=== PATIENT | male | born 1955 | race Caucasian/White ===

== ENCOUNTER 2016-09-15 04:39 | Day surgery (SDC) | payer BC ==
[2016-09-15] VITALS (23 sets, daily range): BP systolic 120–142; BP diastolic 66–76; PULSE 57–75; RESP 13–25; TEMP 95.9–98.2; O2SAT 95–99; Ht 182.9 cm; Wt 112.0 kg
[~2016-09-15] VITALS: Ht 182.9 cm; Wt 112.0 kg
--- NOTE | 2016-09-15 04:59 | NUR ---
PROVIDER DR RUFF IN ROOM TO SEE PT
[2016-09-15] MEDS ORDERED: NO KNOWN MEDS (05:06)
--- NOTE | 2016-09-15 05:25 | NUR ---
PORTABLE CXR COMPLETED
[2016-09-15 05:26] LABS: BASOPHILS # (AUTO) 0.1 T/MM3 (0-0.2); BASOPHILS % (AUTO) 0.6 % (0-2); EOSINOPHILS # (AUTO) 0.1 T/MM3 (0-0.5); EOSINOPHILS % (AUTO) 1.3 % (0-4); HCT - HEMATOCRIT 46.9 % (41-53); HGB - HEMOGLOBIN 15.4 GM/DL (13.5-17.5); IMMATURE GRANULOCYTE # (AUTO) 0.01 T/MM3 (0.00-0.03); IMMATURE GRANULOCYTE % (AUTO) 0.1 % (0.0-0.5); LYMPHOCYTES # (AUTO) 1.9 T/MM3 (1-4.8); LYMPHOCYTES % (AUTO) 18.6 % (23-45); MEAN CORPUSCULAR HGB CONC(MCHC 32.8 GM/DL (31-37); MEAN CORPUSCULAR VOLUME 94.6 UM3 (80-100); MEAN PLATELET VOLUME 9.7 UM3 (9.4-12.4); MONOCYTES # (AUTO) 0.5 T/MM3 (0-0.8); MONOCYTES % (AUTO) 5.4 % (0-9.0); NEUTROPHILS #(AUTO)-ABSOLUTE 7.5 T/MM3 (1.8-7.7); RED BLOOD COUNT 4.96 M/MM3 (4.50-5.90); WBC - WHITE BLOOD COUNT 10.1 T/MM3 (4.5-11.0)
[2016-09-15 05:31] LABS: ALBUMIN 3.9 G/DL (3.5-5.0); ALBUMIN/GLOBULIN RATIO 1.4 RATIO (1.1-2.2); ALKALINE PHOSPHATASE 100 U/L (38-126); ALT (SGPT) 26 U/L (21-72); ANION GAP 12 MEQ/L (5-15); AST (SGOT) 21 U/L (17-59); BUN/CREATININE RATIO 18 RATIO (6-26); CALCIUM 9.9 MG/DL (8.4-10.2); CHLORIDE 107 MEQ/L (98-107); CO2 - CARBON DIOXIDE 24 MEQ/L (22-30); CREATININE 0.9 MG/DL (0.8-1.5); GLOMERULAR FILTRATION RATE 86; GLUCOSE 120 MG/DL (75-110); LIPASE 77 U/L (23-300); POTASSIUM 4.5 MEQ/L (3.6-5); SODIUM 143 MEQ/L (134-144); TOTAL PROTEIN 6.7 G/DL (6.3-8.2)
--- NOTE | 2016-09-15 05:47 | ERPDOC ---
Departure Disposition Decision Date: Sep 15, 2016 Disposition Decision Time: 05:47 Disposition: 02 TO [facility] Impression Impression Impression: Primary Impression: Chest pain Chest pain type: unspecified Qualified Codes: R07.9 - Chest pain, unspecified Severity: Moderate Condition: Improved Seen By: Physician only Problems/Meds/Labs Reviewed?: Yes Medications reviewed and manag: Yes Follow up care ordered?: Yes Mental Status: Alert, Oriented HPI - General Medical General Chief Complaint: Chest Pain Stated Complaint: CHEST PAIN Time Seen by Provider: 04:53 Source: patient, EMS Exam Limitations: no limitations HPI - General Medical Initial Comments 61-year-old male presents to the emergency department with a chief complaint of chest discomfort. Patient was at work at the [employer] when he noted onset of lower midsternal chest discomfort without radiation. Pain was moderate in nature. There was no radiation. Patient was given full dose aspirin therapy and a sublingual nitroglycerin tablet by EMS which totally alleviated his symptoms. Patient denies any other complaints or associated symptoms. Symptoms have resolved upon arrival to the emergency department. Patient has no personal history of coronary artery disease. Patient is a smoker and his father did develop coronary artery disease in his 60s. Occurred At: work Onset: other (Resolved. ) Allergies: Coded Allergies: Penicillins (Verified Allergy, Severe, ANAPHYLACTIC SHOCK, 09/15/16) Past History Past Medical History Pt denies signifigant PMH Integumentary: other Surgical History Denies Surgeries Family History Family PMH: FOUND: CAD Social History Smoking Status: Never smoker Substance Use Type: does not use Alcohol Intake: none Review of Systems Constitutional Constitutional: DENIES: chills, fever Eyes General: DENIES: erythema, exudate Lids/Accessories: DENIES: erythema, swelling Vision: DENIES: acuity, blurring ENMT Ears: DENIES: drainage, erythema Hearing: DENIES: hearing loss Balance: DENIES: ataxia, falling to one side Sinuses: DENIES: congestion, pain Nose: DENIES: nosebleeds, pain Mouth/Throat: DENIES: painful swallowing, sore throat Teeth: DENIES: pain Jaw: DENIES: pain Cardiovascular Cardiac: chest pain (Resolved. ), DENIES: dyspnea on exertion Rhythm/Rate: DENIES: irregular beat, palpitations Vascular: DENIES: pedal edema, unilateral swelling Pulmonary Respiratory: DENIES: cough, dyspnea, pleuritic chest pain, sputum GI Upper Abdomen: DENIES: nausea, pain, vomiting Lower Abdomen: DENIES: diarrhea, pain Musculoskeletal General: DENIES: joint pain, tenderness Integumentary Skin: DENIES: itching, rash Neurological General: DENIES: headache, numbness, weakness Psychiatric Psychiatric: DENIES: emotional instability, suicidal ideation/attempt Endocrine Endocrine: DENIES: polydipsia, polyphagia Hematologic/Lymphatic Hematologic/Lymphatic: DENIES: frequent nosebleeds, lymphadenopathy Allergic/Immunological Allergic/Immunoligical: DENIES: allergic reactions, hives Physical Exam General General Nourishment: well nourished, well developed, appears stated age, no acute distress, adult General Body Habitus: well groomed Vitals and Pain First Documented Vital Signs Date Time Temp Pulse Resp B/P Pulse Ox O2 Delivery O2 Flow Rate FiO2 09/15/16 04:50 97.1 59 18 143/82 97 Room Air Weight: Kilograms: 86.300 Height (feet): 6 Height (inches): 0 Triage Pain Scale: RN VS reviewed by Provider: Yes Normal Exams: Head: Normocephalic w/o trauma Eyes: Pupils are PERRLA w/ EOMI, No scleral icterus, irritation, or foreign bodies noted ENMT: No facial trauma, nasal exudates, pharyngeal erythema, or exudates are noted Dental: No fractured, loose, or missing teeth noted Neck: Full range of motion, without adenopathy, JVD, bruits or thyromegaly Chest/Resp: Clear all ma, with good airflow, and symmetry bilaterally CV: Regular rate and rhythm, without murmur or gallop, Pulses 2+ all extremities, capillary refill, <2 seconds all ext., no pedal edema noted Abdomen: Bowel sounds positive, soft, non-tender, non-distended, no hepatosplenomegaly, masses or bruits noted Lymphatic: No lymphadenopathy, or lymphedema noted Musculoskeletal: No tenderness, or deformity noted, good range of motion, all extremities Integumentary: No rashes, hives, or bruising noted, hair and nails, without abnormality Neurologic: Patient is alert, and oriented, cranial nerves, motor/sensory/ cerebellar, exams w/o gross deficits, to observation Psychiatric: Patient exhibits, appropriate attention, emotion and affect Differential Diagnoses Considering: Acute [place], Medication Effect, Metabolic, Other (ACS) Progress Results/Orders Orders Procedure Category Date Status Time Cbc W/Auto LAB 09/15/16 Complete Diff-Reflex Manual Cmp - Comprehensive LAB 09/15/16 Complete Metabolic Troponin I W LAB 09/15/16 Complete Hemolysis Index EKG EKG 09/15/16 Logged Chest 1 View RAD 09/15/16 Taken 04:53 Lipase LAB 09/15/[address] In Facility: ED ADM 09/15/16 Transmitted 05:56 Lab Results Laboratory Tests Test 09/15/16 05:09 White Blood Count 10.1T/MM3 Red Blood Count 4.96M/MM3 Hemoglobin 15.4GM/DL Hematocrit 46.9% Mean Corpuscular Volume 94.6UM3 Mean Corpuscular Hemoglobin 31.0UUG Mean Corpuscular Hemoglobin Concent 32.8GM/DL RDW Standard Deviation 45.3FL Platelet Count 210T/MM3 Mean Platelet Volume 9.7UM3 Immature Granulocyte % (Auto) 0.1% Neutrophils (%) (Auto) 74.0% Lymphocytes (%) (Auto) 18.6% Monocytes (%) (Auto) 5.4% Eosinophils (%) (Auto) 1.3% Basophils (%) (Auto) 0.6% Absolute Immature Granulocyte (auto 0.01T/MM3 Absolute Neutrophils (auto) 7.5T/MM3 Absolute Lymphocytes (auto) 1.9T/MM3 Absolute Monocytes (auto) 0.5T/MM3 Absolute Eosinophils (auto) 0.1T/MM3 Absolute Basophils (auto) 0.1T/MM3 Turbidity < 20 Sodium Level 143MEQ/L Potassium Level 4.5MEQ/L Chloride Level 107MEQ/L Carbon Dioxide Level 24MEQ/L Anion Gap 12MEQ/L Blood Urea Nitrogen 16.0MG/DL Creatinine 0.9MG/DL Glomerular Filtration Rate Calc 86 BUN/Creatinine Ratio 18RATIO Glucose Level 120MG/DL Calculated Osmolality 277MOSM/KG Calcium Level 9.9MG/DL Total Bilirubin 0.50MG/DL Icterus Index < 2 Aspartate Amino Transf (AST/SGOT) 21U/L Alanine Aminotransferase (ALT/SGPT) 26U/L Alkaline Phosphatase 100U/L Troponin I 0.027ng/ml Total Protein 6.7G/DL Albumin 3.9G/DL Globulin 2.8G/DL Albumin/Globulin Ratio 1.4RATIO Lipase 77U/L Chemistry Specimen Hemolysis < 15 Progress Progress Labs / imaging were discussed in detail with the patient and questions are answered. Patient has had full dose aspirin therapy today prior to arrival to the emergency Department. Patient remained pain-free in the emergency Department. Patient is discussed with Fany who is the ACCREDITATION MANAGER for Dr. Mullins and the patient is accepted to their service. Patient is in agreement with the current plan of management. Patient is admitted to the hospital in improved condition. There are no further orders from accepting physician who is in agreement with the current plan of management. EKG EKG : Rate: 60-100 Rhythm: sinus [place]: normal QRS: normal ST/T: other (NO STEMI) Interpreted by: signing physician Xray Xray : Xray: CXR Portable Interpretation: Normal, Interpreted by JORGE Davis DO Sep 15, 2016 05:47
--- NOTE | 2016-09-15 06:25 | NUR ---
REPORT CALLED REPORT TO BRANDON MENENDEZ
--- NOTE | 2016-09-15 06:35 | NUR ---
ADMIT PT TO ROOM 130 PER ER CART. WAS ABLE TO STAND AND PIVOT TO S.U. BED. PT DENIES CP. DOES C/O INDIGESTION.
--- NOTE | 2016-09-15 07:59 | DI ---
Indication: ITS.REASON: Sharp mid to lower chest pain PROCEDURE: CHEST 1 VIEW: Encounter: Initial Comparison: None FINDINGS: The lungs are clear. There is no abnormal airspace opacity, pleural effusion or pneumothorax identified. The heart size, pulmonary vasculature and mediastinum are within normal limits. No significant skeletal abnormality is seen. IMPRESSION: No acute cardiopulmonary abnormality. .
--- NOTE | 2016-09-15 08:27 | NUR ---
SURGICAL LEAD CONTACT DR. BUTLER IN ROOM FOR PT EVAL/ASSMT
--- NOTE | 2016-09-15 09:19 | HPPDOC ---
HPI - Adult Date DATE: 09/15/16 TIME: 08:56 General Date of Admission Date of Admission: Sep 15, 2016 at 05:48 Chief Complaint: Chest pain / epigastric pain History of Present Illness This is a 61 year old patient with no known cardiac disease, or HTN or DM. He has not seen a PCP since he has not had any medical issues. He does smoke. His Father had an ICD in his 60's but does not think he had stents or CABG. He works third shift at [employer] the [employer]. At [address] to [employer] and started to have pain in his lower chest, epigastric area. It was a 8/10. He tried Tums and walking it off as he has done before. and it would not go away. he denies SOB, diaphoresis, N/V, no diarrhea or constipation, No fever/ chills or recent sickness. He has been feeling fine. At work he is physically active daily which has not caused any pain in the past. He went to [place] [facility] he took 2 ASA prior to arrival. In ER: ECG: SB, HR 58, minimal ST wave depression in leads II, III, and AVF. Trop 0.27 which is negative. BP 131/85, CBC and BMP essentially normal. LFT's normal and Lipase 77 - normal. CXR: heart size normal, lungs clear. Tele showing occasional PVC's per Dr. Barnes. In ER he received Ntg sl x1 which decreased his pain gradually from 8/10 to 4/ 10 then 1/10. Dr. Mullins was contacted and admitted pt as OBS. Past Medical History Past Medical History Metabolic: DENIES: diabetes, hypercholesterolemia, hypertension Cardiac: DENIES: CAD Integumentary: other Surgical History Surgical History Comments no surgeries. Current Medications Home Meds Reported Medications [No Known Meds] No Conflict Check 09/15/16 Allergies: Coded Allergies: Penicillins (Verified Allergy, Severe, ANAPHYLACTIC SHOCK, 09/15/16) Family History FOUND: other (father in his 60's had ICD implanted. ) Vaccines DOESN'T DO THIS DOESN'T DO THIS Social History Smoking Status: Current some day smoker # of Packs/Tins per Day: 1/3 # of Years: 40 Substance Use Type: does not use Alcohol Intake: none Marital Status: Housing: house Household Members: other (lives in basement where exwife and her live. ) Number of Children: 1 Current Occupational Status: employed Current Occupation: [employer] at [employer]. Advance Directives: No DPOA for Healthcare Only Physical Exam General Vital Signs Vital Signs Date Time Temp Pulse Resp B/P Pulse Ox O2 Delivery O2 Flow Rate FiO2 09/15/16 06:40 95.9 58 16 142/75 99 Room Air Height (Feet): 6 Height (Inches): 0.00 Neurologic RN Documented GCS Eye Opening: Verbal: Motor: Total: Laboratory Laboratory Tests Test 09/15/16 05:09 White Blood Count 10.1T/MM3 Red Blood Count 4.96M/MM3 Hemoglobin 15.4GM/DL Hematocrit 46.9% Mean Corpuscular Volume 94.6UM3 Mean Corpuscular Hemoglobin 31.0UUG Mean Corpuscular Hemoglobin Concent 32.8GM/DL RDW Standard Deviation 45.3FL Platelet Count 210T/MM3 Mean Platelet Volume 9.7UM3 Immature Granulocyte % (Auto) 0.1% Neutrophils (%) (Auto) 74.0% Lymphocytes (%) (Auto) 18.6% Monocytes (%) (Auto) 5.4% Eosinophils (%) (Auto) 1.3% Basophils (%) (Auto) 0.6% Absolute Immature Granulocyte (auto 0.01T/MM3 Absolute Neutrophils (auto) 7.5T/MM3 Absolute Lymphocytes (auto) 1.9T/MM3 Absolute Monocytes (auto) 0.5T/MM3 Absolute Eosinophils (auto) 0.1T/MM3 Absolute Basophils (auto) 0.1T/MM3 Turbidity < 20 Sodium Level 143MEQ/L Potassium Level 4.5MEQ/L Chloride Level 107MEQ/L Carbon Dioxide Level 24MEQ/L Anion Gap 12MEQ/L Blood Urea Nitrogen 16.0MG/DL Creatinine 0.9MG/DL Glomerular Filtration Rate Calc 86 BUN/Creatinine Ratio 18RATIO Glucose Level 120MG/DL Calculated Osmolality 277MOSM/KG Calcium Level 9.9MG/DL Total Bilirubin 0.50MG/DL Icterus Index < 2 Aspartate Amino Transf (AST/SGOT) 21U/L Alanine Aminotransferase (ALT/SGPT) 26U/L Alkaline Phosphatase 100U/L Troponin I 0.027ng/ml Total Protein 6.7G/DL Albumin 3.9G/DL Globulin 2.8G/DL Albumin/Globulin Ratio 1.4RATIO Lipase 77U/L Chemistry Specimen Hemolysis < 15 Assessment & Plan Problems: (1) Chest pain Status: Acute Qualifiers: Chest pain type: unspecified Qualified Codes: R07.9 - Chest pain, unspecified Assessment & Plan: 09/15/2016 at 0450 ECG: SB, HR 558, ST depression in inferior leads. and repeat 09/15/2016 at 0842 ECG: SB, HR 57, ST depression in inferior leads but less pronounced. First trop neg. Order serial trop. Chest pain resolved with Ntg sl x 1. Start ASA 81mg daily. check lipid profile. Plan heart cath with poss PCI this afternoon. Explained to HC and possibility to pt. (2) Abnormal ECG Status: Acute Assessment & Plan: as above. (3) Smoking Status: Chronic Assessment & Plan: advised cessation (4) Family history of premature CAD Assessment & Plan: Advised risk management with eating right and cont to be active. Code Status Full Code Hospital Course Summary Disclaimer The hospital course summary below is not to be considered part of the above Progress Note. AURA MATHIAS APRN Sep 15, 2016 09:07
[2016-09-15] MEDS ORDERED: ONDANSETRON 4mg/2ml INJECTION IV PRN ×2 (09:30→15:45)
[2016-09-15] MEDS ORDERED: NORMAL SALINE 1,000 ML IV ONE (09:30)
[2016-09-15] MEDS ORDERED: NITROGLYCERIN 0.4 MG SUBLINGUAL TABLET SL PRN ×2 (09:30→15:45)
[2016-09-15] MEDS ORDERED: POLYETHYL.GLYCOL 3350 PACKET 17gm PO PRN (09:45)
[2016-09-15] MEDS ORDERED: DOCUSATE SODIUM 100 MG CAPSULE PO PRN (09:45)
[2016-09-15] MEDS ORDERED: ACETAMINOPHEN 325 MG TABLET PO PRN ×2 (09:45→15:45)
--- NOTE | 2016-09-15 10:19 | NUR ---
INVERTED BLOCK OPERATOR CONTACT YI MCCARTHY, IN ROOM FOR PROCEDURE/PLAN OF CARE DISCUSSION
--- NOTE | 2016-09-15 12:07 | NUR ---
LAB CALLED NOTIFIED Amie CHE OF ELEVATED TROPONIN OF 1.230. NO NEW ORDERS AT THIS TIME
--- NOTE | 2016-09-15 14:12 | NUR ---
V TACH NOTIFIED YI NAVA, OF 12 BEAT RUN OF V TACH. NO NEW ORDERS.
[2016-09-15] MEDS ORDERED: FENTANYL 100mcg/2ml INJECTION ONE ×2 (14:38→15:12)
[2016-09-15] MEDS ORDERED: MIDAZOLAM 2mg/2ml INJECTION ONE ×2 (14:38→15:13)
[2016-09-15] MEDS ORDERED: NITROGLYCERIN 50mg/10ml INJECTION IV ONE (14:39)
[2016-09-15] MEDS ORDERED: VERAPAMIL 5mg/2ml INJECTION IV ONE (14:39)
[2016-09-15] MEDS ORDERED: HEPARIN 1,000units in NS 500ml BAG IV ONE (14:40)
[2016-09-15] MEDS ORDERED: LIDOCAINE 1% (10mg/ml) 30ml SDV ONE (14:40)
--- NOTE | 2016-09-15 14:50 | NUR ---
CATH PT TO CHUCKING AND BORING MACHINE OPERATOR PER CATH CART. DAUGHTER ATTENDING.
[2016-09-15] MEDS ORDERED: TICAGRELOR 90 MG TABLET ONE (15:24)
[2016-09-15] MEDS ORDERED: IOHEXOL 350mg/ml 200ml BOTTLE ONE (15:31)
[2016-09-15] MEDS ORDERED: BISACODYL 10 MG SUPPOSITORY RECTALLY PRN (15:45)
[2016-09-15] MEDS ORDERED: LORAZEPAM 0.5 MG TABLET PO PRN (15:45)
[2016-09-15] MEDS ORDERED: LORAZEPAM 2 MG/ML INJECTION IV PRN (15:45)
[2016-09-15] MEDS ORDERED: METOCLOPRAMIDE 10mg/2ml INJECTION IV PRN (15:45)
[2016-09-15] MEDS ORDERED: HYDROCODONE/APAP 5 mg/325 mg TABLET PO PRN (15:45)
[2016-09-15] MEDS ORDERED: ATROPINE 1 MG/ML VIAL IV PRN (15:45)
[2016-09-15] MEDS ORDERED: MAG-AL + SIM LIQUID 30 ML UDC PO PRN (15:45)
[2016-09-15] MEDS ORDERED: MORPHINE SULFATE 4 MG SYRINGE IV PRN ×2 (15:45)
[2016-09-15] MEDS ORDERED: PROMETHAZINE 25 MG INJECTION IV PRN (15:45)
[2016-09-15] MEDS ORDERED: MILK OF MAGNESIA 30 ML SUSP PO PRN (15:45)
[2016-09-15] MEDS ORDERED: BISACODYL 5 MG E.C. TABLET PO PRN (15:45)
--- NOTE | 2016-09-15 16:49 | CVPROF ---
CARDIAC CATHETERIZATION/ PERCUTANEOUS INTERVENTION DATE OF PROCEDURE September 15, 2016 The patient is a pleasant 61-year-old gentleman who was admitted with non ST-elevation myocardial infarction and was referred for further evaluation by cardiac catheterization and possible intervention. Informed consent was obtained after explaining the procedure and the potential risks to the patient who agreed to proceed with the procedure. PROCEDURE 1. Left heart catheterization. 2. Coronary angiography. 3. Left ventriculography. 4. Recanalization PTCA and stent of diagonal artery using a 2.25 x 18 drug-eluting Resolute Integrity stent. TECHNIQUE He was prepped and draped in the usual sterile techniques. Conscious sedation was performed using Versed and fentanyl. 1% lidocaine was used for local anesthesia. Using modified Seldinger technique, arterial access was obtained into the right radial artery with placement of a 6-Maldivian arterial sheath. 3000 units of heparin, 300 mcg of nitroglycerin, and 2.5 mg of verapamil were given through the arterial sheath. An additional 3500 units of heparin was administered prior to intervention. LEFT VENTRICULOGRAPHY Left ventriculography in single-plane HARDIN shallow projection showed mild anterior hypokinesia with ejection fraction of about 50%-55% with no mitral regurgitation or gradient across the aortic valve. LVEDP was about 10. CORONARY ANGIOGRAPHY Left main was free of significant lesions. The left anterior descending artery had 20%-30% stenosis. First diagonal was occluded which appeared to be the culprit vessel. Left circumflex artery had minor irregularities. Right coronary artery was dominant with minor irregularities. After reviewing the images we decided to proceed with intervention on diagonal. A 6-Maldivian Aicardi left guide was advanced to the ostium of the left main. A Runthrough wire was used to cross the lesion into distal diagonal. The occlusion was crossed with moderate difficulty. A 2.0 x 15 balloon was delivered to the lesion site where it was inflated up to 14 atmospheres. The next angiogram showed reconstitution of the blood flow. Due to residual stenosis we decided to proceed with stent deployment. A 2.5 x 18 drug-eluting Resolute Integrity stent was delivered to the lesion site where it was deployed by inflating the balloon to 14 atmospheres. The next angiogram showed excellent results with no residual stenosis. The patient tolerated the procedure well with no complications. IMPRESSION 1. Coronary artery disease as described above. 2. Non ST-elevation myocardial infarction with occlusion of the diagonal artery. 3. Successful recanalization PTCA and stent of diagonal artery using a 2.25 x 18 drug-eluting Resolute Integrity stent. PLAN Will keep him on dual antiplatelet platelet therapy at least for one year and continue risk modification. RONAK
[2016-09-15] MEDS: CARVEDILOL 3.125 MG TABLET PO SCH (19:26)
[2016-09-15] MEDS ORDERED: ATORVASTATIN 40 MG TABLET PO SCH (22:00)
[2016-09-15] MEDS: TICAGRELOR 90 MG TABLET PO SCH (22:06)
[2016-09-16] VITALS (27 sets, daily range): BP systolic 113–144; BP diastolic 60–82; PULSE 57–76; RESP 12–28; TEMP 97.4–98.2; O2SAT 95–97
[2016-09-16 05:03] LABS: BASOPHILS % (AUTO) 0.3 % (0-2); EOSINOPHILS # (AUTO) 0.1 T/MM3 (0-0.5); EOSINOPHILS % (AUTO) 1.9 % (0-4); HCT - HEMATOCRIT 46.9 % (41-53); HGB - HEMOGLOBIN 15.3 GM/DL (13.5-17.5); IMMATURE GRANULOCYTE # (AUTO) 0.01 T/MM3 (0.00-0.03); IMMATURE GRANULOCYTE % (AUTO) 0.1 % (0.0-0.5); LYMPHOCYTES # (AUTO) 2.3 T/MM3 (1-4.8); LYMPHOCYTES % (AUTO) 31.2 % (23-45); MEAN CORPUSCULAR HGB 30.9 UUG (26-34); MEAN CORPUSCULAR HGB CONC(MCHC 32.6 GM/DL (31-37); MEAN CORPUSCULAR VOLUME 94.7 UM3 (80-100); MEAN PLATELET VOLUME 9.8 UM3 (9.4-12.4); MONOCYTES # (AUTO) 0.6 T/MM3 (0-0.8); MONOCYTES % (AUTO) 7.8 % (0-9.0); NEUTROPHILS #(AUTO)-ABSOLUTE 4.3 T/MM3 (1.8-7.7); NEUTROPHILS % (AUTO) 58.7 % (33-66); RED BLOOD COUNT 4.95 M/MM3 (4.50-5.90); WBC - WHITE BLOOD COUNT 7.3 T/MM3 (4.5-11.0)
[2016-09-16 05:08] LABS: ANION GAP 9 MEQ/L (5-15); BUN/CREATININE RATIO 13 RATIO (6-26); CALCIUM 9.5 MG/DL (8.4-10.2); CHLORIDE 105 MEQ/L (98-107); CO2 - CARBON DIOXIDE 28 MEQ/L (22-30); CREATININE 0.9 MG/DL (0.8-1.5); GLOMERULAR FILTRATION RATE 86; GLUCOSE 108 MG/DL (75-110); POTASSIUM 4.6 MEQ/L (3.6-5); SODIUM 142 MEQ/L (134-144)
--- NOTE | 2016-09-16 05:25 | NUR ---
Shift Summary Patient has slept well during the night and has not reported pain, nausea, or SOA. HR has been 50-60s sinus rhythm, BP 120-130s/60-70s, and has remained on RA. Urine output has been adequate. Radial site is CDI and tissues is soft around the site. Pulses are strong throughout.
[2016-09-16] MEDS ORDERED: OMEPRAZOLE 20 MG CAPSULE PO SCH (06:30)
[2016-09-16] MEDS: CARVEDILOL 3.125 MG TABLET PO SCH (08:33)
[2016-09-16] MEDS ORDERED: LISINOPRIL 2.5 MG TABLET PO SCH (09:00)
[2016-09-16] MEDS ORDERED: ASPIRIN *EC* 81mg TABLET PO SCH ×2 (09:00)
[2016-09-16] MEDS: TICAGRELOR 90 MG TABLET PO SCH (10:34)
[2016-09-16] MEDS ORDERED: LISINOPRIL 2.5 MG TABLET PO ONE (11:00)
[2016-09-16] MEDS ORDERED: TICA90TA PO (11:51)
[2016-09-16] MEDS ORDERED: CARV3.12 PO (11:51)
[2016-09-16] MEDS ORDERED: ATOR40TA PO (11:51)
[2016-09-16] MEDS ORDERED: LISI2.5T2 PO (11:51)
[2016-09-16] MEDS ORDERED: ASPI-1085 PO (11:51)
--- NOTE | 2016-09-16 13:15 | NUR ---
DC Plans: are reviewed. The patient verbalizes understanding.
--- NOTE | 2016-09-16 13:30 | NUR ---
DC: to home. Accompanied by his daughter. DC packet was sent home with the patient along with sample meds per Fanny Haile APRN.
--- NOTE | 2016-09-16 15:56 | NUR ---
CM CM IN TO VISIT WITH PT. HE IS ALERT AND ORIENTED. HE PLANS TO DC HOME. HE DENIES DC NEEDS. HE IS GIVEN CM CONTACT INFORMATION. Addendum: 09/16/16 at 1556 by GUS COX RN Amended: Links added.
[2016-09-17 01:15] LABS: LDL CHOLESTEROL,CALCULATED 155.2 (66-159); RISK FACTOR 4.8 RATIO (0-5.0); VLDL CHOLESTEROL 18.8 MG/DL (0-28)
[2016-09-17 01:16] LABS: LDL CHOLESTEROL,CALCULATED 155.4 (66-159); RISK FACTOR 4.5 RATIO (0-5.0); VLDL CHOLESTEROL 17.6 MG/DL (0-28)
[2016-09-17] MEDS ORDERED: LISINOPRIL 5 MG TABLET PO SCH (09:00)
--- OUTSIDE RECORDS SUMMARY | 2016-09-18 15:27 | XMS REPORT | Continuity of Care Document ---
Author Author [facility] Organization [facility] Address Unknown Phone Unavailable Support Name Relationship Address Phone LACEY BUTLER MD Caregiver [address] [place] [address] [address] [place] [address] Unavailable LACEY BUTLER MD Caregiver [address] [place] [address] [address] [place] [address] Unavailable JORGE RUFF DO Caregiver [address] [facility] [place] [address] Unavailable GUS SILVA Next Of Kin [address] [place], [place] [id number] Insurance Providers Guarantor Isabell Caldera Address [address] [place] [address] Email DECLINED 09-15-16 Payer [employer] Other Policy Number [id number] Subscriber's Name Isabell Caldera Relationship 18 Self Group Number [id number] Advance Directives Directive Response Recorded Date/Time Ordered Resuscitation Status Full Code 09/15/16 5:48am Resuscitation Documents on File No 09/15/16 6:51am DPOA for Healthcare Only No 09/15/16 9:19am Living Will No 09/15/16 6:51am Problems Active Problems Medical Problem Onset Date Status Abnormal ECG Unknown Acute Past Problems Medical Problem Onset Date Chest pain Unknown Medications Current Home Medications Medication Dose Units Route Directions Days Qty Instructions Start Date Aspirin (Aspirin Ec) 81 Mg Tablet. 81 Mg Oral Daily 30 Days 30 Tablet 09/16/16 Atorvastatin Calcium (Lipitor) 40 Mg Tablet 40 Mg Oral Bedtime 30 Days 30 Tablet 09/16/16 Carvedilol (Coreg) 3.125 Mg Tablet 3.125 Mg Oral Twice Daily With Meals 30 Days 60 Tablet 09/16/16 Lisinopril 2.5 Mg Tablet 5 Mg Oral Daily 30 Days 60 Tablet 09/16/16 Ticagrelor (Brilinta) 90 Mg Tablet 90 Mg Oral Twice A Day 30 Days 60 Tablet 09/16/16 Past Home Medications Medication Directions Ordered Status No Known Meds , 04/18/17 Discontinued Family History Relationship Condition Age at Onset Recorded Date/Time Not Specified Family history of premature CAD Not Recorded 09/15/2016 9:37am Social History Social History Problem Response Recorded Date/Time Onset Date Status Smoking 09/15/2016 9:37am Unknown Active Reason for Hospitalization NSTEMI 09/16/2016 12:44pm Not Applicable Not Applicable Hx Alcohol Use No 09/15/2016 4:56am Not Applicable Not Applicable Has the pt used tobacco in the last 12 months Yes 09/15/2016 6:54am Not Applicable Not Applicable Query Response Start Date Stop Date Smoking Status Current every day smoker Hospital Discharge Instructions Instructions: Care Instructions: I was in the hospital because (patient own words): Sharp pains in his chest Discharge Diet: Resume heart healthy diet Discharge Activity: Limit activity for 2 days. No lifting more than 10 pounds, no pushing or pulling for 1 week. Follow Up Appointments: Follow up with Dr. Butler on: 10/07 at 9:00 Expect a phone call from [facility] to schedule an appointment for you. If you have any questions, please contact [facility] at: [phone]. Pending Lab / Results: No Pending Lab Patient Instructions: Do not drive, operate machinery or drink alcohol for 2 days. New prescriptions:Brilinta 90mg every morning and evening with Aspirin 81mg daily for dual antiplatelet therapy. Atorvastatin 40mg daily at bedtime. Lisinopril 5mg daily and Coreg 3.125mg every morning and evening. Expected Signs/Symptoms: Bruising and tenderness at the site. Notify Physician If: Site is bleeding, abnormal drainage, increased pain or fever of 101.5 or more. During Business Hours:: Call Dr. Butler's office at [phone]. After Business Hours:: Please call [phone] and have the marble cutter operator page the physician. Pain Management/Treatment: Over the counter pain medication if needed. Wound/Incision Care: Keep site clean and dry. No tub baths or swimming for 1 week. You may shower. Condition at time of discharge: Good Plan of Care Discharge Date 09/16/16 1:30pm Disposition 01 DISCHARGED HOME, SELF-CARE Instructions/Education Provided [facility] [place] Chest Pain (DC) Prescriptions See Medication Section Care Plan and Goals See Discharge Instructions Section Functional Status Query Response Date Recorded Mobility Status Ambulatory September 15, 2016 7:06am Assistive Devices None September 15, 2016 7:06am Activity Limitations Pain September 15, 2016 7:06am Feeding Ability Independent September 15, 2016 7:06am Toileting Ability Independent September 15, 2016 7:06am Grooming Ability Independent September 15, 2016 7:06am Dressing Ability Independent September 15, 2016 7:06am Driving Ability Independent September 15, 2016 7:06am Housework Ability Independent September 15, 2016 7:06am Meal Preparation Ability Independent September 15, 2016 7:06am Stair Climbing Ability Independent September 15, 2016 7:06am Ability to complete ADL's impeded by No change September 15, 2016 7:06am Cognitive/Perceptual Impairments Impaired vision September 15, 2016 7:06am Visual Assistive Devices Glasses With patient September 15, 2016 7:06am Preferred Method of Learning Reading Video/TV September 15, 2016 7:06am Allergies, Adverse Reactions, Alerts Allergen Type Severity Reaction Status Last Updated Penicillin Allergy Severe ANAPHYLACTIC SHOCK Active 09/15/16 Immunizations Query Response on File Recorded Date/Time Hx Influenza Vaccination N DOESN'T DO THIS 09/15/16 6:54am Hx Pneumococcal Vaccination N DOESN'T DO THIS 09/15/16 6:54am Hx Influenza Vaccination N DOESN'T DO THIS 09/15/16 6:54am Influenza Vaccine Hx DOESN'T DO THIS 09/15/16 6:59am Vital Signs Acute Vital Signs Vital Response Date/Time Temperature (Fahrenheit) 97.4 deg F (96.8 - 99.1) 09/16/2016 11:30am Temperature (Calculated Celsius) 36.25041 degrees C (36.0 - 37.3) 09/16/2016 11:30am Pulse Rate (adult) 72 bpm (60 - 100) 09/16/2016 12:30pm Respiratory Rate 18 breaths/min (10 - 20) 09/16/2016 12:30pm O2 Sat by Pulse Oximetry 97 % (90 - 100) 09/16/2016 12:30pm Oxygen Delivery Method Room Air 09/16/2016 12:30pm Blood Pressure 122/72 mm Hg 09/16/2016 12:30pm Blood Pressure Source Automatic Cuff 09/16/2016 12:30pm Height (Feet) 6 feet 09/15/2016 9:19am Height (Inches) 0.00 inches 09/15/2016 9:19am Weight (Kilograms) 112.000 kg 09/16/2016 8:08am Body Mass Index (BMI) 25.6 09/15/2016 6:46am Results Laboratory Results Test Name Result Units Flags Reference Collection Date/Time Result Date/ Time Comments White Blood Count 7.3 T/MM3 4.5-11.0 09/16/2016 4:09/16/2016 5: 03am Red Blood Count 4.95 M/MM3 4.50-5.90 09/16/2016 4:09/16/2016 5: 03am Hemoglobin 15.3 GM/DL 13.5-17.5 09/16/2016 4:09/16/2016 5:03am Hematocrit 46.9 % 41-53 09/16/2016 4:09/16/2016 5:03am Mean Corpuscular Volume 94.7 UM3 80-100 09/16/2016 4:09/16/2016 5: 03am Mean Corpuscular Hemoglobin 30.9 UUG 26-34 09/16/2016 4:2016 5:03am Mean Corpuscular Hemoglobin Concent 32.6 GM/DL 31-37 09/16/2016 4:09/16/2016 5:03am RDW Standard Deviation 45.4 FL 36.9-50.2 09/16/2016 4:09/16/2016 5 :03am Platelet Count 190 T/MM3 130-400 09/16/2016 4:09/16/2016 5:03am Mean Platelet Volume 9.8 UM3 9.4-12.4 09/16/2016 4:09/16/2016 5: 03am Neutrophils (%) (Auto) 58.7 % 33-66 09/16/2016 4:09/16/2016 5: 03am Lymphocytes (%) (Auto) 31.2 % 23-45 09/16/2016 4:09/16/2016 5: 03am Monocytes (%) (Auto) 7.8 % 0-9.0 09/16/2016 4:09/16/2016 5:03am Eosinophils (%) (Auto) 1.9 % 0-4 09/16/2016 4:09/16/2016 5:03am Basophils (%) (Auto) 0.3 % 0-2 09/16/2016 4:09/16/2016 5:03am Immature Granulocyte % (Auto) 0.1 % 0.0-0.5 09/16/2016 4:2016 5:03am Absolute Neutrophils (auto) 4.3 T/MM3 1.8-7.7 09/16/2016 4:2016 5:03am Absolute Lymphocytes (auto) 2.3 T/MM3 1-4.8 09/16/2016 4:2016 5:03am Absolute Monocytes (auto) 0.6 T/MM3 0-0.8 09/16/2016 4:09/16/2016 5:03am Absolute Eosinophils (auto) 0.1 T/MM3 0-0.5 09/16/2016 4:2016 5:03am Absolute Basophils (auto) 0.0 T/MM3 0-0.2 09/16/2016 4:09/16/2016 5:03am Absolute Immature Granulocyte (auto 0.01 T/MM3 0.00-0.03 09/16/2016 4: 09/16/2016 5:03am Icterus Index < 2 0-7 09/16/2016 4:09/16/2016 5:08am Chemistry Specimen Hemolysis < 15 0-25 09/16/2016 4:09/16/2016 8 :57am 0-25: Specimen Exhibited No Hemolysis. Turbidity < 20 0-20 09/16/2016 4:09/16/2016 5:08am Sodium Level 142 MEQ/L 134-144 09/16/2016 4:09/16/2016 5:08am Potassium Level 4.6 MEQ/L 3.6-5 09/16/2016 4:09/16/2016 5:08am Chloride Level 105 MEQ/L 98-107 09/16/2016 4:09/16/2016 5:08am Carbon Dioxide Level 28 MEQ/L 22-30 09/16/2016 4:09/16/2016 5: 08am Anion Gap 9 MEQ/L 5-15 09/16/2016 4:09/16/2016 5:08am Blood Urea Nitrogen 12.0 MG/DL 9-20 09/16/2016 4:09/16/2016 5: 08am Creatinine 0.9 MG/DL 0.8-1.5 09/16/2016 4:09/16/2016 5:08am BUN/Creatinine Ratio 13 RATIO 6-26 09/16/2016 4:09/16/2016 5:08am Glomerular Filtration Rate Calc 86 09/16/2016 4:09/16/2016 5: 08am Glucose Level 108 MG/DL 75-110 09/16/2016 4:09/16/2016 5:08am Calculated Osmolality 274 MOSM/KG 261-280 09/16/2016 4:09/16/2016 5:08am Calcium Level 9.5 MG/DL 8.4-10.2 09/16/2016 4:09/16/2016 5:08am Total Bilirubin 0.50 MG/DL 0.20-1.30 09/15/2016 5:09/15/2016 5: 31am Alkaline Phosphatase 100 U/L 38-126 09/15/2016 5:09/15/2016 5: 31am Total Protein 6.7 G/DL 6.3-8.2 09/15/2016 5:09/15/2016 5:31am Albumin 3.9 G/DL 3.5-5.0 09/15/2016 5:09/15/2016 5:31am Globulin 2.8 G/DL 2.4-3.6 09/15/2016 5:09/15/2016 5:31am Albumin/Globulin Ratio 1.4 RATIO 1.1-2.2 09/15/2016 5:09/15/2016 5 :31am Aspartate Amino Transf (AST/SGOT) 21 U/L 17-59 09/15/2016 5:2016 5:31am Alanine Aminotransferase (ALT/SGPT) 26 U/L 21-72 09/15/2016 5: 5:31am Troponin I 13.100 ng/ml H 0-0.12 09/16/2016 4:09/16/2016 8:57am Troponin values greater than 0.120 ng/ml are considered a critical value. Troponin values with a difference of 55% increase from orginal troponin value represent a true biological DELTA value. (%increase Calc=Orginal Troponin value, divided by subsequent Troponin value, multiplied by 100) Lipase 77 U/L 23-300 09/15/2016 5:09am 09/15/2016 5:31am Magnesium Level 2.0 MG/DL 1.6-2.3 09/15/2016 11:27am 09/15/2016 11: 48am Thyroid Stimulating Hormone (TSH) 1.23 MIU/L 0.47-4.68 09/15/2016 11: 27am 09/15/2016 12:20pm Name: ISABELL CALDERA Unit #: [id number] : 1955 Sex: M Admit Date: 09/15/16 Loc / Svc: SRG Discharge Date: DIAGNOSTIC IMAGING REPORT Report #: [id number] [place], [place] Indication: ITS.REASON: Sharp mid to lower chest pain PROCEDURE: CHEST 1 VIEW: Encounter: Initial Comparison: None FINDINGS: The lungs are clear. There is no abnormal airspace opacity, pleural effusion or pneumothorax identified. The heart size, pulmonary vasculature and mediastinum are within normal limits. No significant skeletal abnormality is seen. IMPRESSION: No acute cardiopulmonary abnormality. . Procedures No known history of procedures. Encounters Encounter Location Arrival/Admit Date Discharge/Depart Date Attending Provider Discharged Inpatient (obs) [facility] 09/15/16 5:48am 09/16/16 1: 30pm LACEY BUTLER MD
== END 2016-09-16 13:30 | disposition home or self-care (01) ==
LOC: ED 04:39 → UNDOADMOB 05:48 → SRG 05:48 → EDHOLD 05:48 → CATH 05:48 → EDHOLD 06:35 → SRG 06:35 → CCU 15:30 → SRG 15:30 → UNDODISOB 09-16 13:30 → CATH 09-16 13:30
PROVIDERS: ATTEND Internal Medicine Cardiovascular Disease
DX: I21.4 Non-ST elevation (NSTEMI) myocardial infarction (principal); I25.10 Atherosclerotic heart disease of native coronary artery without angina pectoris; Z82.49 Family history of ischemic heart disease and other diseases of the circulatory system; F17.210 Nicotine dependence, cigarettes, uncomplicated
CPT/HCPCS: 36415; 71010; 80048; 80053; 80061; 83690; 83735; 84443; 84484; 85025; 93005; 93458; 99218; 99284; C1725; C1769; C1874; C1887; C1893; C9600; J1644; J2250; J3010; J3490; J7030; Q9967

== ENCOUNTER → 2016-10-21 | Outpatient (CLI) | payer BC ==
[~2016-10-21] MED LIST: ASPI-1085 PO; ATOR40TA PO; CARV3.12 PO; LISI2.5T2 PO; TICA90TA PO
[2016-10-21 11:44] LABS: ALBUMIN 4.3 G/DL (3.5-5.0); ALBUMIN/GLOBULIN RATIO 1.8 RATIO (1.1-2.2); ALKALINE PHOSPHATASE 110 U/L (38-126); ALT (SGPT) 33 U/L (21-72); AST (SGOT) 18 U/L (17-59); TOTAL PROTEIN 6.7 G/DL (6.3-8.2)
== END ==
LOC: LAB 11:16
PROVIDERS: ATTEND Internal Medicine Cardiovascular Disease
DX: E78.2 Mixed hyperlipidemia (principal)
CPT/HCPCS: 36415; 80076